=== PATIENT | female | born 1985 | race African-American/Black ===

== ENCOUNTER 2020-05-11 08:51 | Inpatient (IN) ==
[2020-05-11] MEDS ORDERED: cefOXitin 2,000 MG in Water for inj. (sterile) 20 ML IVP ONE (09:33)
[2020-05-11] MEDS ORDERED: Ringers Solution, Lactated 1,000 ML IVC SCH ×2 (09:45→13:00)
[2020-05-11] MEDS ORDERED: *HR* OxyCODONE Immed Rel 5 MG TABLET PO PRN (09:53)
[2020-05-11] MEDS ORDERED: Acetaminophen IV 1,000 MG/100 ML BAG IVPB ONE (09:53)
[2020-05-11] MEDS ORDERED: Famotidine 20 MG/2 ML VIAL IVP ONE (09:53)
[2020-05-11] MEDS ORDERED: *HR* HYDROmorphone (PF) 1 MG/ML SYRINGE IVP PRN (09:53)
[2020-05-11] MEDS ORDERED: *HR* Labetalol 20 MG/4 ML SYRINGE IVP PRN (09:53)
[2020-05-11] MEDS ORDERED: *HR* HYDROmorphone 2 MG TABLET PO PRN (09:53)
[2020-05-11] MEDS ORDERED: *HR* FentaNYL (PF) 100 MCG/2 ML VIAL ONE ×2 (10:15→11:11)
[2020-05-11] MEDS ORDERED: *HR* Propofol 200 MG/20 ML VIAL IVP ONE (10:15)
[2020-05-11] MEDS ORDERED: *HR* Midazolam HCl 2 MG/2 ML VIAL ONE (10:15)
[2020-05-11] MEDS ORDERED: Lidocaine HCL 4 ML Topical Solution (Laryng-O-Jet Kit Sterile Pak) TP ONE (10:15)
[2020-05-11] MEDS ORDERED: Dexamethasone 4 MG/ML VIAL ONE (10:15)
[2020-05-11] MEDS ORDERED: Lidocaine -MPF 2% 2 ML VIAL ONE (10:15)
[2020-05-11] MEDS ORDERED: Ondansetron 4 MG/2 ML VIAL ONE (10:15)
[2020-05-11] MEDS ORDERED: *HR* HYDROMORPHONE 2 MG/ML VIAL ONE (11:16)
[2020-05-11] MEDS ORDERED: Sugammadex Sodium 200 MG/2 ML VIAL IV ONE (11:43)
[2020-05-11] MEDS ORDERED: Ondansetron 4 MG/2 ML VIAL IVP PRN (13:00)
[2020-05-11] MEDS ORDERED: *HR* OxyCODONE/APAP 5/325 TABLET PO PRN (13:00)
[2020-05-11] MEDS ORDERED: Naloxone 0.4 MG/ML INJ IVP PRN (13:00)
[2020-05-11] MEDS: Ibuprofen 400 MG TABLET PO SCH ×2 (15:50→22:29)
[2020-05-12] MEDS: Ibuprofen 400 MG TABLET PO SCH ×4 (08:10→23:53)
[2020-05-13 08:01] VITALS: BP 118/73
[2020-05-13] MEDS: Ibuprofen 400 MG TABLET PO SCH (08:08)
== END 2020-05-13 09:10 | disposition home or self-care (01) | DRG 743 ==
LOC: SAMDAY 08:51 → 1NENUOBS 12:56
PROVIDERS: ADMIT Student in an Organized Health Care Education/Training Program; ATTEND Student in an Organized Health Care Education/Training Program